=== PATIENT | female | born 1970 | race Caucasian/White ===

== ENCOUNTER → 2021-07-21 | Day surgery (SDC) | payer OTHER ==
[~2021-07-21] VITALS: Ht 167.6 cm; Wt 129.3 kg
[~2021-07-21] MED LIST: ADDERALL XR 3030 MG PO; CONCERTA36 MG PO; CYCLOBENZAPRINE10 MG PO; IBUPROFEN800 MG PO; LEXAPRO20 MG PO; NAPROXEN500 MG PO; PRILOSEC20 MG PO; PRISTIQ50 MG PO; VITAMIN D250000 UNIT PO
== END | disposition home or self-care (01) ==
LOC: FAS 12:03
DX: M65.841 Other synovitis and tenosynovitis, right hand (principal)
CPT/HCPCS: 93005; J1100; J1170; J1885; J2250; J2405; J2704; J3010; J7120